=== PATIENT | female | born 1960 | race African-American/Black ===

== ENCOUNTER 2019-05-12 19:59 | Emergency (ER) | payer MEDICAID ==
[~2019-05-12] VITALS: Ht 162.6 cm; Wt 90.7 kg
[~2019-05-12 19:59] MED LIST: ASCORBIC ACID500 MG ORAL; ATIVAN1 MG ORAL; BACLOFEN10 MG; BACLOFEN10 MG ORAL; COLACE100 MG ORAL; CRANBERRY 4001 EAC1 PO; CRANBERRY450 M4 PO; DILAUDID4 MG ORAL; DOCUSATE SODIU100 MG; FLUOXETINE HCL20 MG; HI-CAL1000 ML PO; HYDROCODON-ACE1 EA13; HYDROMORPHONE HC4 M1; HYDROXYZINE PAM25 MG; LEVAQUIN500 MG ORAL; LORAZEPAM1 MG; MORPHINE S10 MG/0.5 PO; MORPHINE SULFAT20 M1; MULTI-VITAMIN1 EACH PO; NEXIUM40 M2 ORAL; NORCO 10/3251 EA ORAL; OMEPRAZOLE40 M1; PROZAC20 MG ORAL; SEROQUEL25 MG ORAL; TIZANIDINE HCL2 MG; TIZANIDINE HCL4 MG ORAL; TYLENOL650 MG/20. ORAL; ZINC SULFATE220 M1 ORAL; [UNRECOGNIZED DRUG - OTHER]; prostat PO
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
[2019-05-12] MEDS ORDERED: METRONIDAZOLE500 MG ORAL (21:21)
[2019-05-12] MEDS ORDERED: LACTULOSE10 GM/153 PO (21:21)
[2019-05-12] MEDS ORDERED: VIBRAMYCIN100 MG ORAL (21:21)
[2019-05-12 21:55] VITALS: BP 100/60
--- NOTE | 2019-05-12 21:55 | NUR ---
ED Nurse Note: Pt cleared by health care Provider for discharge. DC instructions/prescription was given and explained to pt and verbalized understanding of teachings. All medical deviecs such as ID band removed. Pt is AAO x4, ambulatory and left with all personal belongings.
--- NOTE | 2019-05-13 14:04 | Diagnostic Imaging Report ---
Indication: Right foot pain Technique: 3 views right foot Comparison: none Findings: Bones are osteoporotic. No definite acute fractures. No dislocations. The joint spaces are preserved. There is an old healed fracture deformity of the distal tibia Impression: Osteoporosis. No definite acute process
== END 2019-05-12 21:55 | disposition home or self-care (01) ==
LOC: EDBD 19:59 → EMR 20:20
DX: S91.311A Laceration without foreign body, right foot, initial encounter (principal); M86.679 Other chronic osteomyelitis, unspecified ankle and foot; Z43.3 Encounter for attention to colostomy; G82.20 Paraplegia, unspecified; J44.9 Chronic obstructive pulmonary disease, unspecified; K44.9 Diaphragmatic hernia without obstruction or gangrene; W22.8XXA Striking against or struck by other objects, initial encounter; Y92.099 Unspecified place in other non-institutional residence as the place of occurrence of the external cause
CPT/HCPCS: 12001; 73630; 99283; Z7502